=== PATIENT | female | born 1970 | race Caucasian/White ===

== ENCOUNTER 2016-06-19 18:43 | Emergency (ER) | payer MEDICARE, MEDICAID ==
[~2016-06-19] VITALS: Ht 165.1 cm; Wt 87.3 kg
[~2016-06-19 18:43] MED LIST: ALBU6.7H IH; AMLO5TAB4 PO; CALC0.25 PO; CALC200T3 PO; CALC668T PO; CIPR250T27 PO; CITA20TA5 PO; FERR325T10 PO; FERR55TA PO; HYDR-3138 PO; HYDR-3240; HYDR-3240 PO; LOSA100T2 PO; NITR100C56 PO; ONDA4TAB7 PO; OXYC5CAP4 PO; POTA10TA90 PO; SODI650T PO
[2016-06-19] MEDS ORDERED: ASPIRIN 81 MG TABLET CHEW ONE (19:19)
[2016-06-19] MEDS ORDERED: ASPIRIN 81 MG TABLET CHEW PO ONE (19:30)
[2016-06-19] MEDS ORDERED: SEVE800T8 PO (19:35)
[2016-06-19] MEDS ORDERED: LEVO75TA PO (19:35)
[2016-06-19 19:41] LABS: BLOOD UREA NITROGEN 50 mg/dL (7-18)
[2016-06-19 19:47] LABS: IS PT STATUS REG ER OR PRE ER? YES
[2016-06-19 21:06] VITALS: BP 128/75
== END 2016-06-19 21:08 | disposition home or self-care (01) ==
LOC: ED 19:09
DX: I12.0 Hypertensive chronic kidney disease with stage 5 chronic kidney disease or end stage renal disease (principal); N18.6 End stage renal disease; R07.89 Other chest pain; R06.00 Dyspnea, unspecified; J45.909 Unspecified asthma, uncomplicated; I12.9 Hypertensive chronic kidney disease with stage 1 through stage 4 chronic kidney disease, or unspecified chronic kidney disease; N18.4 Chronic kidney disease, stage 4 (severe); Z99.2 Dependence on renal dialysis; Z87.440 Personal history of urinary (tract) infections
CPT/HCPCS: 36415; 71010; 80048; 82040; 83880; 84484; 85025; 93005

== ENCOUNTER 2019-01-03 19:50 | Emergency (ER) | payer MEDICARE, MEDICAID ==
[~2019-01-03] VITALS: Ht 165.1 cm; Wt 89.2 kg
[~2019-01-03 19:50] MED LIST changes: -ALBU6.7H IH; +ALBU6.7H8 IH; -CITA20TA5 PO; +CITA20TA6 PO; -FERR325T10 PO; +FERR325T17 PO; -HYDR-3138 PO; +HYDR-3237 PO; +LEVO75TA PO; +OXYC5CAP2 PO; -OXYC5CAP4 PO; +POTA10TA6 PO; -POTA10TA90 PO; +SEVE800T8 PO
[2019-01-03] MEDS ORDERED: SODIUM CHLORIDE 0.9% 1,000ML IVBOLUS ONE ×2 (20:30→22:00)
[2019-01-03] MEDS ORDERED: SODIUM CHLORIDE FLUSH 10ML SYR IVF ONE (20:30)
[2019-01-03 20:41] LABS: BASOPHILS # (AUTO) 0.02 x10^3/uL (0-0.1); BASOPHILS % (AUTO) 0 % (0-1); EOSINOPHILS # (AUTO) 0.09 x10^3/uL (0-0.4); EOSINOPHILS % (AUTO) 1 % (1-7); LYMPHOCYTES # (AUTO) 0.54 x10^3/uL (1-3.4); LYMPHOCYTES % (AUTO) 6 % (22-44); MD NO; MEAN CORPUSCULAR HEMOGLOBIN 29.2 pg (27.0-34.8); MEAN CORPUSCULAR HGB CONC 32.4 g/dL (32.4-35.8); MEAN CORPUSCULAR VOLUME 90.1 fL (80-100); MEAN PLATELET VOLUME 8.7 fL (7.4-10.4); MONOCYTES # (AUTO) 0.61 x10^3/uL (0.2-0.8); MONOCYTES % (AUTO) 7 % (2-9); NEUTROPHILS # (AUTO) 7.65 x10^3/uL (1.8-6.8); NEUTROPHILS % (AUTO) 86 % (42-75); PLATELET COUNT 237 x10^3/uL (130-400); RED BLOOD COUNT 6.14 x10^6/uL (3.82-5.3); RED CELL DISTRIBUTION WIDTH 14.1 % (9.6-15.2)
[2019-01-03 20:48] LABS: MICROSCOPIC AUTO
[2019-01-03 20:49] LABS: CULTURE INDICATED? NO
[2019-01-03 20:53] LABS: ALANINE AMINOTRANSFERASE 32 U/L (12-78); ALBUMIN 3.7 g/dL (3.4-5.0); ANION GAP 8 mmol/L (5-15); CALCIUM 10.4 mg/dL (8.5-10.1); CHLORIDE 100 mmol/L (98-107); CREATININE 2.14 mg/dL (0.55-1.02)
[2019-01-03 20:58] LABS: ALKALINE PHOSPHATASE 81 U/L (45-117); BILIRUBIN,TOTAL 0.6 mg/dL (0.2-1.0); TOTAL PROTEIN 7.6 g/dL (6.4-8.2)
--- NOTE | 2019-01-03 22:00 | NUR ---
STARTED ON 2ND NSB. AWARE OF PLAN FOR RBS ANA AFTER THIS LITER. PT STATES FEELING MUCH BETTER.
[2019-01-03] MEDS ORDERED: POTASSIUM CHLORIDE 20 MEQ TAB.ER.PRT ONE (22:17)
[2019-01-03] MEDS ORDERED: POTASSIUM CHLORIDE 20 MEQ TAB.ER.PRT PO ONE (22:30)
--- NOTE | 2019-01-03 23:16 | NUR ---
RBS 253. AWARE, OK TO DC HOME,
[2019-01-03 23:18] VITALS: BP 126/65
== END 2019-01-03 23:20 | disposition home or self-care (01) ==
LOC: ED 20:58
DX: E11.65 Type 2 diabetes mellitus with hyperglycemia (principal); E87.6 Hypokalemia; E86.0 Dehydration; R79.89 Other specified abnormal findings of blood chemistry; R19.7 Diarrhea, unspecified; I12.9 Hypertensive chronic kidney disease with stage 1 through stage 4 chronic kidney disease, or unspecified chronic kidney disease; N18.4 Chronic kidney disease, stage 4 (severe); J45.909 Unspecified asthma, uncomplicated; E11.22 Type 2 diabetes mellitus with diabetic chronic kidney disease; Z94.0 Kidney transplant status; Z87.891 Personal history of nicotine dependence
CPT/HCPCS: 80053; 81001; 82962; 83690; 84703; 85025; 96360; 96361; 99283; J7030

== ENCOUNTER 2019-01-07 14:00 | Emergency (ER) | payer MEDICARE, MEDICAID ==
[~2019-01-07] VITALS: Ht 165.1 cm; Wt 90.0 kg
[2019-01-07 14:04] VITALS: BP 152/77
[2019-01-07 14:29] LABS: MICROSCOPIC AUTO
[2019-01-07 14:32] LABS: CULTURE INDICATED? NO
[2019-01-07] MEDS ORDERED: SODIUM CHLORIDE 0.9% 1,000ML IV ONE (15:00)
[2019-01-07] MEDS ORDERED: SODIUM CHLORIDE FLUSH 10ML SYR IVF ONE (15:00)
[2019-01-07] MEDS ORDERED: ONDANSETRON 2MG/ML, 2ML IVPush ONE (15:00)
[2019-01-07] MEDS ORDERED: MORPHINE SULFATE 4 MG/ML, 1ML IVPush PRN (15:00)
[2019-01-07 15:07] LABS: BASOPHILS # (AUTO) 0.01 x10^3/uL (0-0.1); BASOPHILS % (AUTO) 0 % (0-1); EOSINOPHILS # (AUTO) 0.04 x10^3/uL (0-0.4); EOSINOPHILS % (AUTO) 1 % (1-7); LYMPHOCYTES # (AUTO) 0.35 x10^3/uL (1-3.4); LYMPHOCYTES % (AUTO) 4 % (22-44); MD NO; MEAN CORPUSCULAR HEMOGLOBIN 29.4 pg (27.0-34.8); MEAN CORPUSCULAR HGB CONC 32.9 g/dL (32.4-35.8); MEAN CORPUSCULAR VOLUME 89.4 fL (80-100); MEAN PLATELET VOLUME 8.6 fL (7.4-10.4); MONOCYTES # (AUTO) 0.27 x10^3/uL (0.2-0.8); MONOCYTES % (AUTO) 3 % (2-9); NEUTROPHILS # (AUTO) 7.43 x10^3/uL (1.8-6.8); NEUTROPHILS % (AUTO) 92 % (42-75); PLATELET COUNT 239 x10^3/uL (130-400); RED BLOOD COUNT 5.71 x10^6/uL (3.82-5.3); RED CELL DISTRIBUTION WIDTH 13.8 % (9.6-15.2)
[2019-01-07 15:16] LABS: ALANINE AMINOTRANSFERASE 30 U/L (12-78); ALBUMIN 3.5 g/dL (3.4-5.0); ANION GAP 5 mmol/L (5-15); CALCIUM 10.2 mg/dL (8.5-10.1); CHLORIDE 107 mmol/L (98-107); CREATININE 1.52 mg/dL (0.55-1.02)
[2019-01-07 15:18] LABS: ALKALINE PHOSPHATASE 59 U/L (45-117); BILIRUBIN,TOTAL 0.5 mg/dL (0.2-1.0); TOTAL PROTEIN 6.8 g/dL (6.4-8.2)
[2019-01-07] MEDS ORDERED: MORPHINE SULFATE 4 MG/ML, 1ML ONE (15:20)
[2019-01-07] MEDS ORDERED: ONDANSETRON 2MG/ML, 2ML ONE (15:20)
[2019-01-07] MEDS ORDERED: metroNIDAZOLE 500 MG TABLET ONE (17:13)
[2019-01-07] MEDS ORDERED: CIPROFLOXACIN 500 MG TABLET ONE (17:14)
[2019-01-07] MEDS ORDERED: CIPROFLOXACIN 500 MG TABLET PO ONE (17:30)
[2019-01-07] MEDS ORDERED: metroNIDAZOLE 500 MG TABLET PO ONE (17:30)
== END 2019-01-07 17:48 | disposition home or self-care (01) ==
LOC: ED 16:15
DX: R19.7 Diarrhea, unspecified (principal); R10.9 Unspecified abdominal pain; E11.65 Type 2 diabetes mellitus with hyperglycemia; E11.22 Type 2 diabetes mellitus with diabetic chronic kidney disease; I12.9 Hypertensive chronic kidney disease with stage 1 through stage 4 chronic kidney disease, or unspecified chronic kidney disease; N18.4 Chronic kidney disease, stage 4 (severe); J45.909 Unspecified asthma, uncomplicated; Z99.2 Dependence on renal dialysis; Z94.0 Kidney transplant status
CPT/HCPCS: 36415; 74176; 80053; 81001; 85025; 96361; 96374; 96375; 99284; J2270; J2405; J7030

== ENCOUNTER 2019-08-19 20:29 | Emergency (ER) | payer MEDICARE, MEDICAID ==
[~2019-08-19] VITALS: Ht 165.1 cm; Wt 87.2 kg
[2019-08-19] MEDS ORDERED: SODIUM CHLORIDE 0.9% 1,000ML IVBOLUS ONE ×2 (21:00→22:00)
[2019-08-19] MEDS ORDERED: SODIUM CHLORIDE FLUSH 10ML SYR IVF ONE (21:00)
--- NOTE | 2019-08-19 21:09 | NUR ---
Patient presents to ER c/o nausea, fatigue, blurry vision, dry mouth, and frequent urination x5 days. Patient has a hx of diabetes but does not regularly check her sugars. Today she checked it and it read "high." Patient is in NAD. Respirations even and unlabored.
[2019-08-19 21:15] LABS: PH, VENOUS 7.418 pH (7.320-7.420)
[2019-08-19 21:22] LABS: BASOPHILS # (AUTO) 0.02 x10^3/uL (0-0.1); BASOPHILS % (AUTO) 0 % (0-1); EOSINOPHILS # (AUTO) 0.06 x10^3/uL (0-0.4); EOSINOPHILS % (AUTO) 1 % (1-7); LYMPHOCYTES % (AUTO) 10 % (22-44); MD NO; MEAN CORPUSCULAR HEMOGLOBIN 30.3 pg (27.0-34.8); MEAN CORPUSCULAR HGB CONC 33.3 g/dL (32.4-35.8); MEAN CORPUSCULAR VOLUME 91.1 fL (80-100); MEAN PLATELET VOLUME 9.4 fL (7.4-10.4); MONOCYTES # (AUTO) 0.53 x10^3/uL (0.2-0.8); MONOCYTES % (AUTO) 8 % (2-9); NEUTROPHILS # (AUTO) 5.55 x10^3/uL (1.8-6.8); NEUTROPHILS % (AUTO) 81 % (42-75); PLATELET COUNT 243 x10^3/uL (130-400); RED BLOOD COUNT 6.13 x10^6/uL (3.82-5.3); RED CELL DISTRIBUTION WIDTH 13.5 % (9.6-15.2)
[2019-08-19 21:27] LABS: ALANINE AMINOTRANSFERASE 122 U/L (12-78); ALBUMIN 3.6 g/dL (3.4-5.0); ANION GAP 11 mmol/L (5-15); CALCIUM 9.9 mg/dL (8.5-10.1); CHLORIDE 99 mmol/L (98-107)
[2019-08-19 21:30] LABS: ALKALINE PHOSPHATASE 82 U/L (45-117); BILIRUBIN,TOTAL 0.6 mg/dL (0.2-1.0); CREATININE 1.77 mg/dL (0.55-1.02); TOTAL PROTEIN 7.4 g/dL (6.4-8.2)
[2019-08-19 21:36] LABS: ACETONE, SERUM Negative (Negative)
[2019-08-19 23:43] LABS: MICROSCOPIC INDICATED
[2019-08-19] MEDS ORDERED: INSULIN SINGLE DOSE, ER ONE (23:44)
[2019-08-19 23:57] VITALS: BP 114/81
[2019-08-20] MEDS ORDERED: INSULIN REGULAR 100 UNITS/ML, 3ML VIAL SQ-INSULIN ONE
--- NOTE | 2019-08-20 00:01 | NUR ---
Discharge instructions given. All questions and concerns addressed. Patient ambulatory with a steady gait. Belongings with patient.
== END 2019-08-20 00:03 | disposition home or self-care (01) ==
LOC: ED 23:30
DX: E11.65 Type 2 diabetes mellitus with hyperglycemia (principal); I12.9 Hypertensive chronic kidney disease with stage 1 through stage 4 chronic kidney disease, or unspecified chronic kidney disease; N18.4 Chronic kidney disease, stage 4 (severe); E11.22 Type 2 diabetes mellitus with diabetic chronic kidney disease; Z87.891 Personal history of nicotine dependence
CPT/HCPCS: 36415; 80053; 81001; 82010; 82803; 82962; 85025; 99283; J1815; J7030

== ENCOUNTER 2019-12-16 19:01 | Emergency (ER) | payer MEDICARE, MEDICAID ==
[~2019-12-16] VITALS: Ht 165.1 cm; Wt 85.3 kg
[2019-12-16] MEDS ORDERED: SODIUM CHLORIDE 0.9% 1,000ML IVBOLUS ONE ×2 (20:00→21:00)
[2019-12-16 20:08] LABS: MICROSCOPIC INDICATED
[2019-12-16 20:09] LABS: PH, VENOUS 7.417 pH (7.320-7.420)
[2019-12-16 20:16] LABS: BASOPHILS % (AUTO) 0 % (0-1); EOSINOPHILS % (AUTO) 0 % (1-7); LYMPHOCYTES % (AUTO) 2 % (22-44); MEAN CORPUSCULAR HEMOGLOBIN 31.1 pg (27.0-34.8); MEAN CORPUSCULAR HGB CONC 33.2 g/dL (32.4-35.8); MEAN PLATELET VOLUME 8.8 fL (7.4-10.4); MONOCYTES % (AUTO) 3 % (2-9); NEUTROPHILS % (AUTO) 94 % (42-75); PLATELET COUNT 126 x10^3/uL (130-400); RED BLOOD COUNT 5.85 x10^6/uL (3.82-5.3); RED CELL DISTRIBUTION WIDTH 14.2 % (9.6-15.2)
[2019-12-16 20:22] LABS: ALANINE AMINOTRANSFERASE 44 U/L (12-78); ANION GAP 8 mmol/L (5-15); CALCIUM 10.1 mg/dL (8.5-10.1); CHLORIDE 98 mmol/L (98-107); CREATININE 1.78 mg/dL (0.55-1.02)
[2019-12-16 20:25] LABS: ALKALINE PHOSPHATASE 87 U/L (45-117); BILIRUBIN,TOTAL 1.2 mg/dL (0.2-1.0); TOTAL PROTEIN 6.8 g/dL (6.4-8.2)
[2019-12-16 20:32] LABS: ACETONE, SERUM Trace (Negative)
[2019-12-16] MEDS ORDERED: ONDANSETRON 2MG/ML, 2ML ONE (20:46)
[2019-12-16 20:50] LABS: MD SCAN
--- NOTE | 2019-12-16 20:50 | NUR ---
PT C/O NAUSEA. PROVIDER NOTIFIED. ZOFRAN ADMIN PER APR.
[2019-12-16] MEDS ORDERED: ONDANSETRON 2MG/ML, 2ML IVPush ONE (21:00)
--- NOTE | 2019-12-16 21:06 | NUR ---
ALL RESULTS ARE BACK AT THIS TIME. CHART UP FOR RECHECK.
[2019-12-16 21:09] VITALS: BP 118/70
--- NOTE | 2019-12-16 21:36 | NUR ---
PT STATES ZOFRAN EFFECTIVE
[2019-12-18] MEDS ORDERED: CHOL100011 PO (16:59)
[2019-12-18] MEDS ORDERED: LOSA25TA12 PO (16:59)
[2019-12-18] MEDS ORDERED: MAGN400T36 PO (16:59)
[2019-12-18] MEDS ORDERED: HYDR12.575 PO (16:59)
[2019-12-18] MEDS ORDERED: GLIP5TAB10 PO (16:59)
[2019-12-18] MEDS ORDERED: MYCO250C PO (16:59)
[2019-12-18] MEDS ORDERED: TACR1CAP2 PO ×2 (16:59)
[2019-12-18] MEDS ORDERED: PRAV20TA2 PO (16:59)
[2019-12-18] MEDS ORDERED: MULT-257 PO (16:59)
[2019-12-18] MEDS ORDERED: CLOT10TR PO (16:59)
== END 2019-12-16 22:04 | disposition home or self-care (01) ==
LOC: ED 20:34
DX: E11.65 Type 2 diabetes mellitus with hyperglycemia (principal); E87.1 Hypo-osmolality and hyponatremia; R00.0 Tachycardia, unspecified; I12.9 Hypertensive chronic kidney disease with stage 1 through stage 4 chronic kidney disease, or unspecified chronic kidney disease; N18.4 Chronic kidney disease, stage 4 (severe); J45.909 Unspecified asthma, uncomplicated; Z87.891 Personal history of nicotine dependence; Z99.2 Dependence on renal dialysis
CPT/HCPCS: 36415; 80053; 81001; 82010; 82803; 85025; 96361; 96374; 99283; J2405; J7030

== ENCOUNTER 2019-12-26 17:47 | Emergency (ER) | payer MEDICARE, MEDICAID ==
[~2019-12-26] VITALS: Ht 165.1 cm; Wt 83.5 kg
[~2019-12-26 17:47] MED LIST changes: +CARV3.1212 PO; +CEPH-375 PO; +CHOL100011 PO; +CLOT10TR PO; +GLIP5TAB10 PO; +HYDR12.575 PO; +INSU100I11 SQ-INSULIN; +INSU100I13 SQ-INSULIN; +LOSA25TA12 PO; +MAGN400T36 PO; +MULT-257 PO; +MYCO250C PO; +PRAV20TA2 PO; +PRED5TAB PO; +TACR1CAP2 PO
[2019-12-26 17:49] VITALS: BP 160/77
--- NOTE | 2019-12-26 18:43 | NUR ---
NAX1
--- NOTE | 2019-12-26 19:06 | NUR ---
DIRECTOR REPORT: NA X 2 WHEN CALLED FOR ROOM.
--- NOTE | 2019-12-26 19:17 | NUR ---
ETL APPLICATION DEVELOPER: PT. NIL X 3 WHEN CALLED FOR ROOM.
== END 2019-12-26 19:19 | disposition left against medical advice (07) ==
LOC: ED 19:13
DX: R73.09 Other abnormal glucose (principal); Z53.21 Procedure and treatment not carried out due to patient leaving prior to being seen by health care provider
CPT/HCPCS: 82962; 99281; 99406

== ENCOUNTER 2020-03-19 17:38 | Emergency (ER) | payer MEDICAID, MEDICARE ==
[~2020-03-19] VITALS: Ht 165.1 cm; Wt 89.0 kg
[~2020-03-19 17:38] MED LIST changes: +HYDR-1067; +HYDR-1067 PO; -HYDR-3240; -HYDR-3240 PO
[2020-03-19] MEDS ORDERED: SODIUM CHLORIDE FLUSH 10ML SYR IVF ONE (18:00)
[2020-03-19] MEDS ORDERED: SODIUM CHLORIDE 0.9% 1,000ML IVBOLUS ONE (18:00)
--- NOTE | 2020-03-19 18:14 | NUR ---
PATIENT AMBULATED WITH STEADY GAIT TO BATHROOM FOR URINE SAMPLE.
--- NOTE | 2020-03-19 18:18 | NUR ---
PATIENT WALKED BACK FROM TRIAGE WITH CHIEF C/O FEVER AND BODY ACHES. PATIENT REPORTS FEVER, BODY ACHES AND BO SINCE YESTERDAY, DENIES SOB, DENIES CHEST PAIN, DENIES COUGH, DENIES N/V/D. SURI, VSS, CALL LIGHT WITHIN REACH.
--- NOTE | 2020-03-19 18:35 | NUR ---
20 GAUGE IV STARTED AND 1 SET OF BLOOD CUTLURES DRAWN, CELIA CARL. COSMETIC SALES ASSISTANT AT BEDSIDE FOR SECOND SET OF BLOOD CULTURES AND REST OF LAB WORK. URINE SAMPLE COLLECTED AND WALKED TO LAB. COVID AND FLU SWABS COLLECTED AND WALKED TO LAB.
[2020-03-19 19:18] LABS: MICROSCOPIC AUTO
[2020-03-19 19:26] LABS: ALANINE AMINOTRANSFERASE 26 U/L (12-78); ALBUMIN 3.1 g/dL (3.4-5.0); ANION GAP 10 mmol/L (5-15); CALCIUM 9.2 mg/dL (8.5-10.1); CHLORIDE 105 mmol/L (98-107); CREATININE 1.41 mg/dL (0.55-1.02)
[2020-03-19 19:27] LABS: MEAN CORPUSCULAR HEMOGLOBIN 30.7 pg (27.0-34.8); MEAN PLATELET VOLUME 8.2 fL (7.4-10.4); PLATELET COUNT 165 x10^3/uL (130-400); RED BLOOD COUNT 5.47 x10^6/uL (3.82-5.3); RED CELL DISTRIBUTION WIDTH 13.6 % (9.6-15.2)
[2020-03-19 19:29] LABS: RAPID INFLUENZA A Negative (Negative); RAPID INFLUENZA B Negative (Negative)
[2020-03-19 19:31] LABS: ALKALINE PHOSPHATASE 62 U/L (45-117); TOTAL PROTEIN 6.3 g/dL (6.4-8.2)
[2020-03-19 19:55] LABS: MD YES
[2020-03-19 19:58] LABS: <PLATELET ESTIMATE> ADEQUATE; <PLT MORPHOLOGY> NORMAL PLT MORPH; <RBC MORPHOLOGY> NORMAL; BANDS%(MANUAL) 13 % (0-7); BASOS#(MANUAL) 0.09 x10^3/uL (0-0.1); BASOS% (MANUAL) 1 % (0-1); LYMPH#(MANUAL) 0.18 x10^3/uL (1-3.4); LYMPHS% (MANUAL) 2 % (22-44); MONOS#(MANUAL) 0.09 x10^3/uL (0.3-2.7); MONOS% (MANUAL) 1 % (2-9); SEG#(MANUAL) 7.64 x10^3/uL (1.8-6.8); SEGS% (MANUAL) 83 % (42-75)
[2020-03-19] MEDS ORDERED: CEFTRIAXONE PMX 1GM/50ML 50 ML IV ONE (20:30)
[2020-03-19] MEDS ORDERED: CEFTRIAXONE PMX 1GM/50ML 50 ML ONE (21:57)
--- NOTE | 2020-03-19 22:05 | NUR ---
Pt calm in room. US at bedside. Pt A&Ox 3. Pt with stable VS. Pt p/w/d, A&O. Will monitor.
[2020-03-19] MEDS ORDERED: ACETAMINOPHEN 325 MG TABLET PO PRN (22:30)
[2020-03-19] MEDS ORDERED: ONDANSETRON ODT 4 MG PO PRN (22:30)
[2020-03-19] MEDS ORDERED: LABETALOL 5MG/ML, 20ML IVPush PRN (22:30)
[2020-03-19] MEDS ORDERED: DOCUSATE 100 MG CAPSULE PO PRN (22:30)
[2020-03-19] MEDS ORDERED: HYDROcodone/APAP 5/325 TABLET PO PRN (22:30)
[2020-03-19] MEDS ORDERED: LACTATED RINGERS 1,000 ML IV SCH (22:30)
[2020-03-19] MEDS ORDERED: TRAZODONE 50MG TABLET PO PRN (22:30)
[2020-03-19 23:34] VITALS: BP 130/61
--- NOTE | 2020-03-19 23:38 | NUR ---
Pt wanting to go home. Physician in room discussing reason to stay and be admitted. Pt fully aware of risks of leaving. Pt A&O, in full decision making capacity. Pt wants to leave AMA, with plan in place for pt f/u with PCP and kidney doctor. Pt with stable VS, IV dc'd intact. Instructions and rx reviewed with patient with understanding stated. Pt ambulatory out of ED without difficulty.
[2020-03-21] MEDS ORDERED: EPINEPHRINE 1 MG/ML, 1ML ONE (06:44)
[2020-03-21] MEDS ORDERED: AMINOCAPROIC ACID 250 MG/ML, 20ML ONE ×2 (06:44)
[2020-03-21] MEDS ORDERED: PROPOFOL 10 MG/ML, 20ML ONE (06:44)
[2020-03-21] MEDS ORDERED: PHENYLEPHRINE 10 MG/ML ONE (06:45)
[2020-03-21] MEDS ORDERED: ROCURONIUM 10MG/ML,5ML ONE ×2 (06:45)
== END 2020-03-19 23:45 | disposition home or self-care (01) ==
LOC: ED 20:07 → UNDOADMIN 22:44 → EDIP 22:44 → ED 23:39
DX: R50.9 Fever, unspecified (principal); Z20.822 Contact with and (suspected) exposure to COVID-19; E11.22 Type 2 diabetes mellitus with diabetic chronic kidney disease; I12.9 Hypertensive chronic kidney disease with stage 1 through stage 4 chronic kidney disease, or unspecified chronic kidney disease; N18.4 Chronic kidney disease, stage 4 (severe); N39.0 Urinary tract infection, site not specified; D84.9 Immunodeficiency, unspecified; M79.10 Myalgia, unspecified site; Z99.2 Dependence on renal dialysis
CPT/HCPCS: 36415; 71045; 76776; 80053; 81001; 82728; 83605; 83615; 84145; 84703; 85025; 87040; 87077; 87086; 87186; 87400; 87635; 93005; 96361; 96365; 99285; J0696; J7030; 96374

== ENCOUNTER 2020-07-27 17:11 | Inpatient (IN) | payer MEDICAID ==
[~2020-07-27] VITALS: Ht 165.1 cm; Wt 91.3 kg
[~2020-07-27 17:11] MED LIST changes: -HYDR-1067; -HYDR-1067 PO; +HYDR-2214; +HYDR-2214 PO
--- NOTE | 2020-07-27 17:22 | NUR ---
greige goods examiner: pt states that she was drinking water in lobby. pt advised to be NPO. blanket given per request
--- NOTE | 2020-07-27 18:39 | NUR ---
TASK RN, COVERING MEAL BREAK. PT WITH NAUSEA, DIFFUSE ABD AND FLANK PAIN AND TENDERNESS. BP CUFF, PULSE OX IN PLACE. URINE COLLECTED/SENT TO LAB. CALL LIGHT WITHIN REACH.
[2020-07-27 18:53] LABS: MICROSCOPIC AUTO
[2020-07-27] MEDS ORDERED: ONDANSETRON 2MG/ML, 2ML ONE (18:53)
[2020-07-27] MEDS ORDERED: MORPHINE SULFATE 4 MG/ML, 1ML ONE (18:53)
[2020-07-27] MEDS ORDERED: SODIUM CHLORIDE FLUSH 10ML SYR IVF ONE (19:00)
[2020-07-27] MEDS ORDERED: SODIUM CHLORIDE 0.9% 1,000 ML IV ONE (19:00)
[2020-07-27] MEDS ORDERED: ONDANSETRON 2MG/ML, 2ML IVPush ONE (19:00)
[2020-07-27] MEDS ORDERED: MORPHINE SULFATE 4 MG/ML, 1ML IVPush PRN (19:00)
[2020-07-27 19:11] LABS: MEAN CORPUSCULAR HEMOGLOBIN 30.8 pg (27.0-34.8); MEAN CORPUSCULAR HGB CONC 34.1 g/dL (32.4-35.8); MEAN PLATELET VOLUME 8.3 fL (7.4-10.4); PLATELET COUNT 180 x10^3/uL (130-400); RED BLOOD COUNT 5.68 x10^6/uL (3.82-5.3); RED CELL DISTRIBUTION WIDTH 14.3 % (9.6-15.2)
[2020-07-27 19:21] LABS: ALANINE AMINOTRANSFERASE 38 U/L (12-78); ALBUMIN 3.4 g/dL (3.4-5.0); ANION GAP 10 mmol/L (5-15); CALCIUM 9.9 mg/dL (8.5-10.1); CHLORIDE 98 mmol/L (98-107); CREATININE 1.44 mg/dL (0.55-1.02)
[2020-07-27 19:24] LABS: ALKALINE PHOSPHATASE 80 U/L (45-117); BILIRUBIN,TOTAL 1.9 mg/dL (0.2-1.0); TOTAL PROTEIN 7.2 g/dL (6.4-8.2)
[2020-07-27 19:40] LABS: <PLATELET ESTIMATE> ADEQUATE; <PLT MORPHOLOGY> NORMAL PLT MORPH; <RBC MORPHOLOGY> NORMAL; BANDS%(MANUAL) 20 % (0-7); LYMPH#(MANUAL) 0.11 x10^3/uL (1-3.4); LYMPHS% (MANUAL) 1 % (22-44); METAMYELOCYTES# (MANUAL) 0.11 x10^3/uL (0-0); METAMYELOCYTES% (MANUAL) 1 % (0-1); MONOS#(MANUAL) 0.21 x10^3/uL (0.3-2.7); MONOS% (MANUAL) 2 % (2-9); MYELOCYTES# (MANUAL) 0.11 x10^3/uL (0-0); MYELOCYTES% (MANUAL) 1 % (0-0); SEG#(MANUAL) 7.88 x10^3/uL (1.8-6.8); SEGS% (MANUAL) 75 % (42-75)
--- NOTE | 2020-07-27 19:46 | NUR ---
ERMD AT BEDSIDE TO UPDATE PT ON POC. PT TO BE ADMIT/
[2020-07-27] MEDS ORDERED: ACETAMINOPHEN 650 MG/20.3 ML UDC PO ONE (20:00)
[2020-07-27] MEDS ORDERED: CEFTRIAXONE 1,000 MG in DEXTROSE 5% 50 ML IVPB ONE (20:00)
[2020-07-27] MEDS ORDERED: SODIUM CHLORIDE 0.9% 1,000ML IVBOLUS ONE (20:00)
--- NOTE | 2020-07-27 20:50 | NUR ---
REPORT GIVEN TO CAROLYN MARTEL. PT RTG TO ROOM [phone]
[2020-07-27] MEDS ORDERED: BISACODYL 10 MG SUPP PR PRN (21:00)
[2020-07-27] MEDS ORDERED: CLOTRIMAZOLE TROCHES 10 MG PO SCH (21:00)
[2020-07-27] MEDS ORDERED: INSULIN LISPRO 100 UNITS/ML, PEN SQ-INSULIN SCH (21:00)
[2020-07-27] MEDS ORDERED: ONDANSETRON 2MG/ML, 2ML IVPush PRN (21:00)
[2020-07-27] MEDS ORDERED: POLYETHYLENE GLYCOL 17 GM PACKET PO PRN (21:00)
[2020-07-27] MEDS ORDERED: PRAVASTATIN 20 MG TABLET PO SCH (21:00)
[2020-07-27] MEDS ORDERED: TACROLIMUS 1 MG CAPSULE PO SCH (21:00)
[2020-07-27 21:32] VITALS: BP 104/70
[2020-07-27 22:01] VITALS: BP 121/65
[2020-07-27] MEDS: ACETAMINOPHEN 325 MG TABLET PO PRN (22:01)
[2020-07-27] MEDS: CARVEDILOL 3.125 MG TABLET PO SCH (22:02)
[2020-07-27] MEDS: SODIUM CHLORIDE 0.9% 1,000 ML IV SCH (22:05)
[2020-07-27] MEDS: HEPARIN 5,000 UNITS/ML, 1ML SQ SCH (22:06)
[2020-07-27] MEDS: HYDROcodone/APAP 5/325 TABLET PO PRN (22:07)
[2020-07-27] MEDS: INSULIN GLARGINE 100 UNITS/ML, PEN SQ-INSULIN SCH (23:58)
[2020-07-27] MEDS: INSULIN LISPRO 100 UNITS/ML, PEN MEDIUM DOSE SS SQ-INSULIN SCH (23:58)
[2020-07-27 23:59] VITALS: BP 97/67
[2020-07-27] MEDS: LOSARTAN 25MG TABLET PO SCH (23:59)
[2020-07-28 01:32] VITALS: BP 109/65
[2020-07-28] MEDS: HEPARIN 5,000 UNITS/ML, 1ML SQ SCH ×3 (05:04→21:39)
[2020-07-28 05:21] VITALS: BP 97/62
[2020-07-28] MEDS: HYDROcodone/APAP 5/325 TABLET PO PRN ×3 (05:24→20:04)
[2020-07-28] MEDS: LEVOTHYROXINE 75 MCG TABLET PO SCH (05:25)
[2020-07-28 05:39] LABS: BASOPHILS % (AUTO) 0 % (0-1); EOSINOPHILS % (AUTO) 0 % (1-7); LYMPHOCYTES % (AUTO) 3 % (22-44); MEAN CORPUSCULAR HEMOGLOBIN 30.8 pg (27.0-34.8); MEAN PLATELET VOLUME 8.6 fL (7.4-10.4); MONOCYTES % (AUTO) 7 % (2-9); NEUTROPHILS % (AUTO) 89 % (42-75); PLATELET COUNT 156 x10^3/uL (130-400); RED BLOOD COUNT 5.08 x10^6/uL (3.82-5.3); RED CELL DISTRIBUTION WIDTH 13.9 % (9.6-15.2)
[2020-07-28 05:48] LABS: CHLORIDE 101 mmol/L (98-107)
[2020-07-28 05:53] LABS: ANION GAP 10 mmol/L (5-15); CALCIUM 8.7 mg/dL (8.5-10.1); CREATININE 1.52 mg/dL (0.55-1.02)
[2020-07-28 06:34] VITALS: BP 90/63
[2020-07-28] MEDS ORDERED: HYDROCHLOROTHIAZIDE 12.5 MG CAPSULE PO SCH (09:00)
[2020-07-28] MEDS ORDERED: TACROLIMUS 1 MG CAPSULE PO SCH ×4 (09:00→21:45)
[2020-07-28] MEDS ORDERED: CEFTRIAXONE 1,000 MG in DEXTROSE 5% 50 ML IVPB ONE (09:00)
[2020-07-28] MEDS ORDERED: MAGNESIUM OXIDE 400 MG TABLET PO SCH (09:00)
[2020-07-28] MEDS: morphine SULFATE 10 MG/ML, 1ML IVPush PRN (09:26)
[2020-07-28] MEDS: SODIUM CHLORIDE 0.9% 1,000 ML IV SCH (09:26)
[2020-07-28] MEDS: INSULIN LISPRO 100 UNITS/ML, PEN MEDIUM DOSE SS SQ-INSULIN SCH ×4 (09:27→21:37)
[2020-07-28] MEDS: MULTIVITAMIN 1 TABLET PO SCH (10:25)
[2020-07-28] MEDS: CHOLECALCIFEROL 1,000 UNIT TABLET PO SCH (10:25)
[2020-07-28] MEDS: SENNA/DOCUSATE TABLET PO SCH (10:25)
[2020-07-28 12:17] VITALS: BP 107/71
[2020-07-28] MEDS: POTASSIUM CHLORIDE 20 MEQ in SODIUM CHLORIDE 0.45% 1,000 ML IV SCH (12:19)
[2020-07-28] MEDS: ACETAMINOPHEN 325 MG TABLET PO PRN (17:16)
[2020-07-28 19:21] VITALS: BP 114/73
[2020-07-28] MEDS ORDERED: CEFTRIAXONE 1,000 MG in DEXTROSE 5% 50 ML IVPB SCH (20:00)
[2020-07-28] MEDS: CEFTRIAXONE 2,000 MG in DEXTROSE 5% 50 ML IVPB SCH (20:03)
[2020-07-28] MEDS: LOSARTAN 25MG TABLET PO SCH (21:13)
[2020-07-28] MEDS: CARVEDILOL 3.125 MG TABLET PO SCH (21:13)
[2020-07-28] MEDS ORDERED: PRAVASTATIN 20 MG TABLET PO SCH (21:30)
[2020-07-28] MEDS ORDERED: LOSARTAN 25MG TABLET PO SCH (21:30)
[2020-07-28] MEDS: INSULIN GLARGINE 100 UNITS/ML, PEN SQ-INSULIN SCH (21:38)
[2020-07-28] MEDS: TACROLIMUS 1 MG CAPSULE PO SCH (21:39)
[2020-07-29 01:33] VITALS: BP 138/67
[2020-07-29] MEDS: ACETAMINOPHEN 325 MG TABLET PO PRN ×2 (01:47→22:08)
[2020-07-29] MEDS: POTASSIUM CHLORIDE 20 MEQ in SODIUM CHLORIDE 0.45% 1,000 ML IV SCH (01:48)
[2020-07-29 05:45] VITALS: BP 115/79
[2020-07-29 05:45] LABS: ALANINE AMINOTRANSFERASE 27 U/L (12-78); ALBUMIN 2.4 g/dL (3.4-5.0); ANION GAP 7 mmol/L (5-15); BASOPHILS % (AUTO) 0 % (0-1); CALCIUM 8.8 mg/dL (8.5-10.1); CHLORIDE 104 mmol/L (98-107); EOSINOPHILS % (AUTO) 1 % (1-7); LYMPHOCYTES % (AUTO) 3 % (22-44); MEAN PLATELET VOLUME 8.9 fL (7.4-10.4); MONOCYTES % (AUTO) 6 % (2-9); NEUTROPHILS % (AUTO) 90 % (42-75); PLATELET COUNT 142 x10^3/uL (130-400); RED BLOOD COUNT 4.94 x10^6/uL (3.82-5.3); RED CELL DISTRIBUTION WIDTH 13.8 % (9.6-15.2)
[2020-07-29] MEDS: LEVOTHYROXINE 75 MCG TABLET PO SCH (05:46)
[2020-07-29] MEDS: HEPARIN 5,000 UNITS/ML, 1ML SQ SCH ×3 (05:47→21:15)
[2020-07-29] MEDS: HYDROcodone/APAP 5/325 TABLET PO PRN ×2 (05:47→12:21)
[2020-07-29 06:24] LABS: C-REACTIVE PROTEIN, QUANT > 19.00 mg/dL (0.02-0.49)
[2020-07-29 06:26] LABS: ALKALINE PHOSPHATASE 69 U/L (45-117); BILIRUBIN,TOTAL 0.4 mg/dL (0.2-1.0); TOTAL PROTEIN 6.3 g/dL (6.4-8.2)
[2020-07-29] MEDS ORDERED: MAGNESIUM OXIDE 400 MG TABLET PO SCH (09:00)
[2020-07-29 09:08] VITALS: BP 109/72
[2020-07-29] MEDS: SENNA/DOCUSATE TABLET PO SCH (09:36)
[2020-07-29] MEDS: MAGNESIUM 250 MG TAB HOMEMEDPO SCH (09:36)
[2020-07-29] MEDS: POTASSIUM CHLORIDE 20 MEQ TAB.ER.PRT PO SCH ×2 (09:36→16:40)
[2020-07-29] MEDS: MULTIVITAMIN 1 TABLET PO SCH (09:37)
[2020-07-29] MEDS: CHOLECALCIFEROL 1,000 UNIT TABLET PO SCH (09:37)
[2020-07-29] MEDS: TACROLIMUS 1 MG CAPSULE PO SCH ×2 (09:37→20:43)
[2020-07-29] MEDS: INSULIN LISPRO 100 UNITS/ML, PEN SQ-INSULIN SCH ×3 (09:37→21:16)
[2020-07-29] MEDS: HYDROCHLOROTHIAZIDE 12.5 MG CAPSULE PO SCH (09:37)
[2020-07-29] MEDS ORDERED: POTASSIUM CHLORIDE 20 MEQ in SODIUM CHLORIDE 0.45% 1,000 ML IV SCH (10:00)
[2020-07-29 13:33] VITALS: BP 127/84
[2020-07-29] MEDS: morphine SULFATE 10 MG/ML, 1ML IVPush PRN (18:48)
[2020-07-29 19:13] VITALS: BP 118/75
[2020-07-29] MEDS: CEFTRIAXONE 2,000 MG in DEXTROSE 5% 50 ML IVPB SCH (20:41)
[2020-07-29] MEDS: LOSARTAN 25MG TABLET PO SCH (20:43)
[2020-07-29] MEDS: PRAVASTATIN 20 MG TABLET PO SCH (20:43)
[2020-07-29] MEDS: INSULIN GLARGINE 100 UNITS/ML, PEN SQ-INSULIN SCH (21:15)
[2020-07-30 00:05] VITALS: BP 131/85
[2020-07-30] MEDS: morphine SULFATE 10 MG/ML, 1ML IVPush PRN (00:56)
[2020-07-30] MEDS: LEVOTHYROXINE 75 MCG TABLET PO SCH ×2 (05:10→05:13)
[2020-07-30] MEDS: HEPARIN 5,000 UNITS/ML, 1ML SQ SCH ×3 (05:10→21:02)
[2020-07-30 06:05] LABS: ANION GAP 6 mmol/L (5-15); CALCIUM 9.7 mg/dL (8.5-10.1); CHLORIDE 107 mmol/L (98-107); CREATININE 1.31 mg/dL (0.55-1.02)
[2020-07-30] MEDS: ACETAMINOPHEN 325 MG TABLET PO PRN (06:10)
[2020-07-30 06:14] LABS: BASOPHILS % (AUTO) 1 % (0-1); EOSINOPHILS % (AUTO) 1 % (1-7); LYMPHOCYTES % (AUTO) 7 % (22-44); MEAN CORPUSCULAR HEMOGLOBIN 30.9 pg (27.0-34.8); MEAN CORPUSCULAR HGB CONC 33.8 g/dL (32.4-35.8); MONOCYTES % (AUTO) 15 % (2-9); NEUTROPHILS % (AUTO) 77 % (42-75); PLATELET COUNT 150 x10^3/uL (130-400); RED BLOOD COUNT 5.03 x10^6/uL (3.82-5.3)
[2020-07-30 07:13] VITALS: BP 137/77
[2020-07-30] MEDS: INSULIN LISPRO 100 UNITS/ML, PEN SQ-INSULIN SCH ×4 (08:30→21:01)
[2020-07-30] MEDS: SENNA/DOCUSATE TABLET PO SCH (08:31)
[2020-07-30] MEDS: CHOLECALCIFEROL 1,000 UNIT TABLET PO SCH (08:31)
[2020-07-30] MEDS: TACROLIMUS 1 MG CAPSULE PO SCH ×2 (08:31→21:01)
[2020-07-30] MEDS: MULTIVITAMIN 1 TABLET PO SCH (08:31)
[2020-07-30] MEDS: MAGNESIUM 250 MG TAB HOMEMEDPO SCH (08:31)
[2020-07-30] MEDS: HYDROCHLOROTHIAZIDE 12.5 MG CAPSULE PO SCH (08:31)
[2020-07-30] MEDS: HYDROcodone/APAP 5/325 TABLET PO PRN ×2 (09:51→20:59)
[2020-07-30 14:27] VITALS: BP 137/88
[2020-07-30] MEDS: CARVEDILOL 3.125 MG TABLET PO SCH (17:04)
[2020-07-30 20:03] VITALS: BP 133/85
[2020-07-30] MEDS: PRAVASTATIN 20 MG TABLET PO SCH (21:00)
[2020-07-30] MEDS: LOSARTAN 25MG TABLET PO SCH (21:00)
[2020-07-30] MEDS: CEFTRIAXONE 2,000 MG in DEXTROSE 5% 50 ML IVPB SCH (21:01)
[2020-07-30] MEDS: INSULIN GLARGINE 100 UNITS/ML, PEN SQ-INSULIN SCH (21:02)
[2020-07-31 00:22] VITALS: BP 147/85
[2020-07-31] MEDS: morphine SULFATE 10 MG/ML, 1ML IVPush PRN (00:27)
[2020-07-31] MEDS: HYDROcodone/APAP 5/325 TABLET PO PRN (02:49)
[2020-07-31] MEDS: CARVEDILOL 3.125 MG TABLET PO SCH ×2 (06:00→06:16)
[2020-07-31] MEDS: HEPARIN 5,000 UNITS/ML, 1ML SQ SCH (06:00)
[2020-07-31] MEDS: LEVOTHYROXINE 75 MCG TABLET PO SCH (06:00)
[2020-07-31 06:21] LABS: CHLORIDE 107 mmol/L (98-107)
[2020-07-31 06:27] LABS: ANION GAP 10 mmol/L (5-15); CALCIUM 9.9 mg/dL (8.5-10.1); CREATININE 1.32 mg/dL (0.55-1.02)
[2020-07-31] MEDS: INSULIN LISPRO 100 UNITS/ML, PEN SQ-INSULIN SCH ×2 (07:00→11:00)
[2020-07-31] MEDS: TACROLIMUS 1 MG CAPSULE PO SCH (08:23)
[2020-07-31] MEDS: MULTIVITAMIN 1 TABLET PO SCH (08:23)
[2020-07-31] MEDS: HYDROCHLOROTHIAZIDE 12.5 MG CAPSULE PO SCH (08:23)
[2020-07-31] MEDS: SENNA/DOCUSATE TABLET PO SCH (08:24)
[2020-07-31] MEDS: MAGNESIUM 250 MG TAB HOMEMEDPO SCH (08:24)
[2020-07-31] MEDS: CHOLECALCIFEROL 1,000 UNIT TABLET PO SCH (08:24)
[2020-07-31 08:30] VITALS: BP 116/80
[2020-07-31] MEDS ORDERED: LEVO750T6 PO (08:51)
[2020-07-31] MEDS ORDERED: LEVOFLOXACIN 750 MG TABLET PO ONE (09:00)
== END 2020-07-31 12:10 | disposition home or self-care (01) | DRG 720 ==
LOC: ED 17:30 → EDIP 21:13 → 4EST 21:35
PROVIDERS: ADMIT Family Medicine; ATTEND Family Medicine
DX: A41.51 Sepsis due to Escherichia coli [E. coli] (principal); I15.1 Hypertension secondary to other renal disorders; D75.1 Secondary polycythemia; Q61.3 Polycystic kidney, unspecified; E78.5 Hyperlipidemia, unspecified; E03.9 Hypothyroidism, unspecified; N10 Acute pyelonephritis; E66.9 Obesity, unspecified; J45.909 Unspecified asthma, uncomplicated; Z87.891 Personal history of nicotine dependence; Z79.899 Other long term (current) drug therapy; Z87.440 Personal history of urinary (tract) infections; Z94.0 Kidney transplant status; Z82.49 Family history of ischemic heart disease and other diseases of the circulatory system; Z82.71 Family history of polycystic kidney; Z83.3 Family history of diabetes mellitus; Z79.4 Long term (current) use of insulin; Z68.33 Body mass index [BMI] 33.0-33.9, adult
CPT/HCPCS: 36415; 74176; 80048; 80053; 81001; 82962; 83036; 83605; 85025; 85651; 86140; 87040; 87077; 87086; 87186; 96374; 96375; G0378; J0696; J1644; J2405; J3480; J7507; J7517; J1815; J2270; J7030; J7512